=== PATIENT | female | born 1985 | race Two or more races ===

== ENCOUNTER 2024-02-27 08:20 | Inpatient (IN) | payer MEDICAID, OTHER ==
[~2024-02-27] VITALS: Ht 149.9 cm; Wt 78.1 kg
[2024-02-27 09:41] LABS: Basophils # (auto) 0 10 ^3/uL (0-0.2); Basophils % (auto) 0.4 % (0.0-2.0); Eosinophils # (auto) 0.1 10 ^3/uL (0-0.8); Eosinophils % (auto) 0.7 % (0.0-7.0); Hematocrit 41.1 % (36.0-46.0); Hemoglobin 14.2 g/dL (12.2-16.2); Lymphocytes # (auto) 3.3 10 ^3/uL (0.4-5.4); Lymphocytes % (auto) 35.6 % (10.0-50.0); Mean Corpuscular Hemoglobin 30.6 pg (28.0-32.0); Mean Corpuscular Hgb Conc. 34.6 g/dL (32.0-36.0); Mean Corpuscular Volume 88.6 fL (80.0-100.0); Monocytes # (auto) 0.6 10 ^3/uL (0-1.3); Monocytes % (auto) 6.9 % (0.0-12.0); Neutrophils # (auto) 5.3 10 ^3/uL (1.6-8.6); Neutrophils % (auto) 56.4 % (37.0-80.0); Red Blood Cells 4.64 10^6/uL (4.0-5.20); Red Cell Distribution Width 13.8 % (11.8-14.3); White Blood Cell 9.3 10^3/uL (4.4-10.8)
[2024-02-27 09:48] LABS: Chloride 111 mmol/L (98-107); Sodium 139 mmol/L (136-145)
[2024-02-27 09:49] LABS: Anion Gap 2 (5-15); Calcium 9.1 mg/dL (8.5-10.1); Carbon Dioxide 26 mmol/L (20-30)
[2024-02-27 09:54] LABS: Glucose 103 mg/dL (74-106)
[2024-02-27 10:31] LABS: Urine Bacteria None Seen /hpf (None Seen)
[2024-02-27 10:34] LABS: BUN/Creatinine Ratio 7.9 (10.0-20.0); Blood Urea Nitrogen < 5 mg/dL (9-23)
[2024-02-27 11:02] LABS: Urine Blood Negative /uL (Negative); Urine Clarity Clear (Clear); Urine Color Light-Yellow (Yellow); Urine Protein, UAD Negative (Negative); Urine Urobilinogen Normal (Negative); Urine WBC <1 /hpf (0 - 5)
[2024-02-27] MEDS ORDERED: MECLIZINE HCL 25 MG TAB PO PRN (13:00)
[2024-02-27] MEDS ORDERED: MORPHINE SULFATE INJ 2 MG/ml SYRG IV PRN (13:00)
[2024-02-27 14:47] VITALS: PULSE 67; RESP 18; O2SAT 98
[2024-02-27] MEDS: HYDROcodone-ACET 5/325MG TAB PO PRN (19:42)
[2024-02-27 21:51] VITALS: BP 130/77; PULSE 61; RESP 18; TEMP 98.2; O2SAT 98
[2024-02-27 22:45] VITALS: BP 130/77; PULSE 70; RESP 18; TEMP 98.2; O2SAT 98
[2024-02-27] MEDS: ONDANSETRON HCL 4 MG/2 ML VIAL IV PRN (23:27)
[2024-02-27] MEDS: DOCUSATE SOD 100 MG CAP PO PRN (23:27)
[2024-02-28] MEDS ORDERED: ERGO2000 PO (00:08)
[2024-02-28 01:00] VITALS: BP 124/79; PULSE 57; RESP 17; TEMP 97.8; O2SAT 100
[2024-02-28 05:00] VITALS: BP 110/67; PULSE 61; RESP 18; TEMP 97.9; O2SAT 95
[2024-02-28 07:12] LABS: Basophils # (auto) 0 10 ^3/uL (0-0.2); Basophils % (auto) 0.3 % (0.0-2.0); Eosinophils # (auto) 0.1 10 ^3/uL (0-0.8); Hematocrit 39.1 % (36.0-46.0); Hemoglobin 13.6 g/dL (12.2-16.2); Lymphocytes # (auto) 2.9 10 ^3/uL (0.4-5.4); Lymphocytes % (auto) 34.3 % (10.0-50.0); Mean Corpuscular Hemoglobin 30.7 pg (28.0-32.0); Mean Corpuscular Hgb Conc. 34.9 g/dL (32.0-36.0); Mean Corpuscular Volume 87.9 fL (80.0-100.0); Monocytes # (auto) 0.6 10 ^3/uL (0-1.3); Monocytes % (auto) 6.5 % (0.0-12.0); Neutrophils # (auto) 4.9 10 ^3/uL (1.6-8.6); Neutrophils % (auto) 57.9 % (37.0-80.0); Red Blood Cells 4.45 10^6/uL (4.0-5.20); Red Cell Distribution Width 13.6 % (11.8-14.3); White Blood Cell 8.5 10^3/uL (4.4-10.8)
[2024-02-28 07:21] LABS: Alanine Aminotransferase 23 U/L (7-40); Albumin 4.1 g/dL (3.2-4.8); Alkaline Phosphatase 64 U/L (46-116); Anion Gap 3 (5-15); Aspartate Aminotransferase 31 U/L (13-40); BUN/Creatinine Ratio 7.2 (10.0-20.0); Blood Urea Nitrogen 5 mg/dL (9-23); Carbon Dioxide 23 mmol/L (20-30); Chloride 112 mmol/L (98-107); Cholesterol 149 mg/dL (< 200); Glucose 137 mg/dL (74-106); HDL Cholesterol 38 mg/dL (40-59); LDL Cholesterol 111 mg/dL (< 100); Potassium 3.5 mmol/L (3.5-5.1); Sodium 138 mmol/L (136-145); Triglycerides 84 mg/dL (< 150)
[2024-02-28 07:22] LABS: Bilirubin, Total 0.6 mg/dL (0.2-1.0); Total Protein 6.3 g/dL (5.7-8.2)
[2024-02-28 09:30] VITALS: BP 109/56; PULSE 67; RESP 18; TEMP 98.2; O2SAT 96
[2024-02-28] MEDS: ACETAMINOPHEN 325 MG TAB PO PRN (09:38)
[2024-02-28 13:26] VITALS: BP 112/60; PULSE 73; RESP 18; TEMP 98.3; O2SAT 97
== END 2024-02-28 17:25 | disposition home or self-care (01) | DRG 422 ==
LOC: ER 08:20 → OVERFLOW 13:15 → WEST WING 21:51
PROVIDERS: ADMIT Internal Medicine Pulmonary Disease; ATTEND Internal Medicine Pulmonary Disease
DX: E86.0 Dehydration (principal); E66.9 Obesity, unspecified; F41.0 Panic disorder [episodic paroxysmal anxiety]; F32.A Depression, unspecified; R73.03 Prediabetes; Z88.0 Allergy status to penicillin; Z68.34 Body mass index [BMI] 34.0-34.9, adult; Z79.899 Other long term (current) drug therapy
CPT/HCPCS: 36415; 70450; 80048; 80053; 80061; 81001; 84443; 85025; 93005; G0378; J2405